=== PATIENT | female | born 1970 | race Caucasian/White ===

== ENCOUNTER → 2018-08-29 14:45 | Outpatient (CLI) | payer OTHER, SELFPAY | DX: Z23 Encounter for immunization (principal) ==

== ENCOUNTER → 2019-07-11 10:55 | Outpatient (CLI) | payer OTHER, SELFPAY | DX: Z23 Encounter for immunization (principal) | CPT/HCPCS: 90471; 90686 ==

== ENCOUNTER 2024-08-09 23:34 | Emergency (ER) | payer OTHER, SELFPAY ==
[2024-08-09 23:42] VITALS: BP 239/104; PULSE 89; RESP 16; TEMP 37.1; O2SAT 98; BMI 45.7
[2024-08-10] VITALS (10 sets, daily range): BP systolic 185–200; BP diastolic 81–100; PULSE 65–91; RESP 12–19; TEMP 36.9; O2SAT 94–99
--- NOTE | 2024-08-10 01:27 | EKG_ITS ---
Located Within [facility] [address] [place] [address] Test Date: 2024-08-10 Pat Name: Mayela Villa Department: Room: Gender: Female Licensed Plumber: ANNIE : 1970 Requested By: Order Number: [id number] Reading MD: Erick Ruffin Measurements Intervals [place] Rate: 92 P: CT: 134 QRS: -56 QRSD: 88 T: 239 QT: 384 QTc: 474 Interpretive Statements Sinus rhythm with premature atrial complexes Left axis deviation ST & T wave abnormality, consider inferior ischemia Prolonged QT Electronically Signed On 08-10-2024 8:33:10 PDT by Erick Ruffin
[2024-08-10] MEDS: AMLODIPINE 5 MG TABLET PO (01:30)
--- NOTE | 2024-08-10 01:43 | ED_ITS ---
HPI - General Adult General Chief complaint: Hypertension Stated complaint: blood pressure 208/118 Time Seen by Provider: 08/10/24 01:26 Source: patient Mode of arrival: Ambulatory History of Present Illness HPI narrative: 54-year-old female with history of hypertension, previously on losartan 100 mg daily, discontinued as she ran out of the medication and did not refill it, no intolerance to the medication or side effects that cause her to stop the medication. She had sleep study today, and was following up for the results, noted by practitioner to have elevated blood pressure, persistently elevated, referred here for further evaluation. Denies shortness of breath or chest pain. Denies lower extremity edema. She has not been taking any guji-ocq-xhnftvq decongestants or any cxzv-dhk-ufpdonk medications. Currently not taking any blood pressure control medication. Related Data Previous Rx's Medication Instructions Recorded sulfamethoxazole 800 1 tab PO BID 7 days #0 tabs 11/08/16 mg-trimethoprim 160 mg tablet losartan 100 mg tablet 100 mg PO DAILY #30 tabs 08/10/24 Allergies Allergy/AdvReac Type Severity Reaction Status Date / Time erythromycin base Allergy Unknown Unverified 01/26/18 12:14 [ERYTHROMYCIN BASE] morphine [MORPHINE] Allergy Unknown Unverified 01/26/18 12:14 Review of Systems Review of Systems Narrative: see HPI Patient History Social History Smoking Status: Never smoker Smoking Status: Never smoker Substance Use Type: does not use Exam Narrative Exam Narrative: GENERAL: Well-developed patient, in mild distress. HEAD: Atraumatic. Normocephalic. EYES: Pupils equal round and reactive. Extraocular motions intact. No scleral icterus. No injection or drainage. ENT: Nose without bleeding, purulent drainage. Throat without erythema, tonsillar hypertrophy or exudate. Airway patent. NECK: Trachea midline. Non tender CARDIOVASCULAR: Regular rate and rhythm without murmurs, gallops, or rubs. RESPIRATORY: Clear to auscultation. Breath sounds equal bilaterally. No wheezes, rales, or rhonchi. GASTROINTESTINAL: Abdomen soft, non-tender, nondistended. EXTREMITIES: No edema or joint tenderness. BACK: Nontender without deformity or crepitance. No flank tenderness. NEURO: AOx3. Motor functions grossly nonfocal SKIN: No rash or erythema of visible areas Initial Vital Signs Initial Vital Signs: Vital Signs Temperature 98.8 F 08/09/24 23:42 Pulse Rate 89 08/09/24 23:42 Respiratory Rate 16 08/09/24 23:42 Blood Pressure 239/104 H 08/09/24 23:42 Pulse Oximetry 98 08/09/24 23:42 Oxygen Delivery Method Room Air 08/09/24 23:42 Course Orders Ordered: ED Orders 08/10/24 01:27 EKG-12 Lead Stat 08/10/24 01:40 CBC Auto Diff [Complete Blood Count AUTO DIFF] Stat CMP [Comprehensive Metabolic Panel] Stat Troponin I Stat Discontinued Medications Amlodipine Besylate (Amlodipine 5 Mg Tablet) 5 mg PO NOW ONE Stop: 08/10/24 01:28 Last Admin: 08/10/24 01:30 Dose: 5 mg Documented By: Losartan Potassium (Losartan 50 Mg Tablet) 100 mg PO NOW ONE Stop: 08/10/24 02:25 Last Admin: 08/10/24 02:42 Dose: 100 mg Documented By: Vital Signs Vital signs: Vital Signs - 8 hr 08/09/24 23:42 08/10/24 02:09 08/10/24 02:20 Temperature 98.8 F Pulse Rate 89 88 Respiratory Rate 16 17 Blood Pressure 239/104 H 186/100 H Pulse Oximetry 98 95 Oxygen Delivery Method Room Air 08/10/24 02:22 08/10/24 02:30 08/10/24 02:31 Temperature Pulse Rate 91 H Respiratory Rate 12 Blood Pressure 190/86 H 200/90 H Pulse Oximetry 96 Oxygen Delivery Method 08/10/24 02:31 08/10/24 02:42 08/10/24 03:00 Temperature Pulse Rate 90 65 Respiratory Rate 18 Blood Pressure 200/88 H 199/82 H Pulse Oximetry 96 Oxygen Delivery Method 08/10/24 03:00 08/10/24 03:29 08/10/24 03:30 Temperature Pulse Rate 89 89 Respiratory Rate 18 16 Blood Pressure 189/81 H Pulse Oximetry 95 94 Oxygen Delivery Method 08/10/24 04:06 Temperature 98.4 F Pulse Rate 85 Respiratory Rate 19 Blood Pressure 185/88 H Pulse Oximetry 99 Oxygen Delivery Method Room Air Medical Decision Making Lab Data Lab results reviewed: Yes I reviewed the patient's lab results. 08/10/24 01:40 08/10/24 01:40 Labs: Lab Results 08/10/24 Range/Units 01:40 WBC 14.1 H (4.5-11.0) X10^3/uL RBC 5.42 H (4.0-5.2) X10^6/uL Hgb 14.7 (12.0-16.0) g/dL Hct 44.8 (36-46) % MCV 82.6 (80-100) fL MCH 27.2 (26-34) PG MCHC 32.9 (30-36) % RDW 14.9 H (11.6-14.8) % Plt Count 409 H (150-400) X10^3/uL Neut % (Auto) 74.1 (50-75) % Lymph % (Auto) 18.5 L (25-40) % [place] % (Auto) 4.3 (3-14) % Eos % (Auto) 2.1 (2-4) % Baso % (Auto) 1.0 (0-2) % Neut # (Auto) 95082 H (6011-2491) /uL Lymph # (Auto) 2600 (9765-9849) /uL [place] # (Auto) 600 (0-900) /uL Eos # (Auto) 300 (0-450) /uL Baso # (Auto) 100 (0-100) /uL Sodium 137 (137-145) mmol/L Potassium 4.1 (3.4-5.1) mmol/L Chloride 102 (98-107) mmol/L Carbon Dioxide 27 (22-32) mmol/L BUN 15 (7-17) mg/dL Creatinine 0.77 (0.52-1.04) mg/dL Estimated GFR > 60 (>60) mL/min BUN/Creatinine Ratio 19.5 (6-22) Glucose 125 H (70-100) mg/dL Calcium 9.5 (8.4-10.2) mg/dL Total Bilirubin 0.7 (0.2-1.3) mg/dL AST 21 (14-36) IU/L ALT 19 (<35) IU/L Alkaline Phosphatase 115 (38-126) U/L Troponin I < 0.012 (0.01-0.034) ng/mL Total Protein 8.2 (6.3-8.2) g/dL Albumin 4.7 (3.5-5.0) g/dL Globulin 3.5 (1.7-4.1) g/dL Albumin/Globulin Ratio 1.3 (1.0-2.8) ECG Data Attestation: I personally reviewed and interpreted this ECG as follows: Interpretation: Normal sinus rhythm with rate of 92, no obvious ST segment elevation or depression changes. MI 134, QRS 88, QTC 474. MDM Narrative Medical decision making narrative: 54-year-old female with elevated blood pressure, formally on Losartan 100 mg daily monotherapy discontinued after she ran out of the medication and did not refill. Afebrile, sirs screen negative. Screening EKG without obvious ischemic changes. Serum studies and urinalysis pending. We will give oral losartan 100 mg dose. 0345, repeat blood pressure 189/91 improving Discharged home with family, new prescription to restart losartan 100 mg daily sent to her pharmacy. Follow up with PCP for further blood pressure management as an outpatient for now Discharge Plan Departure Patient Disposition: Home Clinical Impression: Hypertension Activity Restrictions/Additional Instructions: History of hypertension, previously on losartan 100 mg daily dose medication, ran out and did not have refills. Noted at follow up sleep study by practitioner to have elevated blood pressure, referred for further evaluation. No acute sequelae on lab and EKG studies. Oral dose amlodipine and then oral dose losartan given, blood pressure improved. We will continue further losartan 100 mg daily, previous antihypertensive mild therapy dose, prescription sent to your pharmacy, with a refill. Recheck blood pressure back on losartan medication in the next few days. Return to this/nearest emergency department for any change worsening symptoms or any concerns prior Prescriptions: New losartan 100 mg tablet 100 mg PO DAILY Qty: 30 1RF No Action sulfamethoxazole-trimethoprim 800 MG/160 MG tablet 1 tab PO BID 7 Days Qty: 0 0RF Referrals: Héctor Walker MD [Primary Care Provider] - Stand Alone Forms: Patient Portal/API
[2024-08-10 01:59] LABS: Add Manual Diff / Slide Review NO; Basophils Absolute Auto 100 /uL (0-100); Eosinophils Absolute Auto 300 /uL (0-450); Eosinophils Percent Auto 2.1 % (2-4); Hematocrit 44.8 % (36-46); Hemoglobin 14.7 g/dL (12.0-16.0); Lymphocytes Absolute Auto 2600 /uL (1100-4500); Lymphocytes Percent Auto 18.5 % (25-40); Mean Corpuscular HGB Conc 32.9 % (30-36); Mean Corpuscular Hemoglobin 27.2 PG (26-34); Mean Corpuscular Volume 82.6 fL (80-100); Monocytes Absolute Auto 600 /uL (0-900); Monocytes Percent Auto 4.3 % (3-14); Neutrophils Absolute Auto 10500 /uL (1500-7000); Neutrophils Percent Auto 74.1 % (50-75); Platelet Count 409 X10^3/uL (150-400); Red Blood Cell Count 5.42 X10^6/uL (4.0-5.2); Red Cell Distribution Width 14.9 % (11.6-14.8); White Blood Cell Count 14.1 X10^3/uL (4.5-11.0)
[2024-08-10 02:07] LABS: Alanine Aminotransferase 19 IU/L (<35); Albumin 4.7 g/dL (3.5-5.0); Albumin Globulin Ratio 1.3 (1.0-2.8); Alkaline Phosphatase 115 U/L (38-126); Aspartate Aminotransferase 21 IU/L (14-36); BUN Creatinine Ratio 19.5 (6-22); Bilirubin Total 0.7 mg/dL (0.2-1.3); Blood Urea Nitrogen 15 mg/dL (7-17); Calcium 9.5 mg/dL (8.4-10.2); Carbon Dioxide 27 mmol/L (22-32); Chloride 102 mmol/L (98-107); Estimated Glomerular Filt Rate > 60 mL/min (>60); Globulin 3.5 g/dL (1.7-4.1); Glucose 125 mg/dL (70-100); HEMOLYSIS < 15 (0-50); Potassium 4.1 mmol/L (3.4-5.1); Sodium 137 mmol/L (137-145); Total Protein 8.2 g/dL (6.3-8.2)
--- NOTE | 2024-08-10 02:08 | PC.NURSE ---
Pt brought back to room. Denies feeling lightheaded or dizzy. Appears in NAD.
--- NOTE | 2024-08-10 02:27 | PC.NURSE ---
186/100 left arm, 190/86 right arm manual bp
[2024-08-10] MEDS: LOSARTAN 50 MG TABLET 100 MG PO (02:42)
[2024-08-10 03:49] LABS: Troponin I < 0.012 ng/mL (0.01-0.034)
== END 2024-08-10 04:07 | disposition home or self-care (01) ==
PROVIDERS: Emergency Provider Emergency Medicine
DX: I10 Essential (primary) hypertension (principal); R07.9 Chest pain, unspecified
CPT/HCPCS: 80053; 84484; 85025; 93005; 99283; 99284